=== PATIENT | female | born 1990 | race Hispanic/Latino ===

== ENCOUNTER 2020-04-10 16:00 | Inpatient (IN) | payer OTHER, MEDICAID ==
[~2020-04-10 16:00] MED LIST: Bupivacaine 0.25% HCL 30 ML VIAL ONE
[2020-04-10] MEDS ORDERED: Promethazine HCl 25 MG/ML VIAL IM PRN (16:28)
[2020-04-10] MEDS ORDERED: NS w/ Oxytocin 10 units 500 ML IV SCH (16:28)
[2020-04-10] MEDS ORDERED: NS / Oxytocin 40 units/1000ml 1,000 ML IV PRN (16:28)
[2020-04-10] MEDS ORDERED: hydrALAZINE 20 MG/ML VIAL SLOW IVP PRN (16:28)
[2020-04-10] MEDS ORDERED: HYDROcodone/Acetaminophen 5/325 mg Tablet PO PRN ×2 (16:28)
[2020-04-10] MEDS ORDERED: Zolpidem Tartrate 5 MG TAB PO PRN (16:28)
[2020-04-10] MEDS ORDERED: Lidocaine 1% (PF) 30 ML VIAL SC PRN (16:28)
[2020-04-10] MEDS ORDERED: Ibuprofen 800 MG TAB PO PRN (16:28)
[2020-04-10] MEDS ORDERED: Ondansetron PF 4 MG/2 ML Vial IVP PRN (16:28)
[2020-04-10] MEDS ORDERED: Butorphanol Tartrate 1 MG/ML VIAL SLOW IVP PRN (16:28)
[2020-04-10] MEDS ORDERED: Lactated Ringer's 1,000 ML IV SCH (16:28)
[2020-04-10 16:57] VITALS: BMI 32.5
[2020-04-10 17:14] LABS: Hemoglobin 12.1 g/dL (12.0-16.0); Mean Corpuscular HGB CONC 34.2 g/dL (32.0-36.0); Mean Corpuscular Hemoglobin 27.3 pg (27.0-31.0); Mean Corpuscular Volume 79.8 fL (78.0-98.0); Mean Platelet Volume 8.7 fL (7.4-10.4); Platelet Count 231 thou/uL (130-400); RBC Distribution Width 14.5 % (11.5-14.5); Red Blood Cell (RBC) Count 4.42 mill/uL (4.20-5.40); White Blood Cell (WBC) Count 9.1 thou/uL (4.8-10.8)
--- NOTE | 2020-04-10 17:44 | PDOC.EVN ---
Event Note - Event Note Event Note: Alejandro luu placed for Dr Guerrero without difficulty.
[2020-04-10 17:54] LABS: Syphilis Antibody Nonreactive (Nonreactive); Syphilis Antibody Index 0.02 S/CO (<1.00 Non-Reactive)
[2020-04-10 17:55] LABS: Hep B Surf Ag Non-Reactive S/CO (NonReactive)
[2020-04-11] MEDS ORDERED: Fentanyl 4 mcg/Bup 0.1% Cadd 100 ML ONE ×2 (08:19→14:43)
[2020-04-11] MEDS: Fentanyl 4 mcg/Bupivacaine 0.1% Cassette 100 ML EPIDURAL SCH ×2 (08:59→14:45)
[2020-04-11] MEDS ORDERED: Acetaminophen 325 MG TAB PO PRN (09:40)
[2020-04-11] MEDS ORDERED: EPHEDRINE 25 MG/5 ML SYRINGE SLOW IVP PRN (09:40)
[2020-04-11] MEDS ORDERED: Lactated Ringer's 500 ML IV PRN (09:40)
[2020-04-11] MEDS ORDERED: Naloxone HCl 0.4 mg/ml Vial IVP PRN ×2 (09:40)
[2020-04-11] MEDS ORDERED: Promethazine HCl 25 MG/ML VIAL IM PRN ×2 (09:40→19:08)
[2020-04-11] MEDS ORDERED: Ondansetron PF 4 MG/2 ML Vial IVP PRN ×2 (09:40→19:08)
[2020-04-11] MEDS ORDERED: diphenhydrAMINE 50 MG/ML VIAL IVP PRN (09:40)
[2020-04-11] MEDS ORDERED: Communication Order-Pharmacy FS PRN (09:45)
[2020-04-11] MEDS: Lactated Ringer's 1,000 ML IV SCH ×2 (10:00→23:05)
[2020-04-11] MEDS ORDERED: Lanolin Ointment 7 GM TUBE TOP PRN (19:08)
[2020-04-11] MEDS ORDERED: Preparation H Ointment 28 GM TUBE PR PRN (19:08)
[2020-04-11] MEDS ORDERED: Benzocaine-Menthol 82.5 ML CAN TOP PRN (19:08)
[2020-04-11] MEDS ORDERED: hydrALAZINE 20 MG/ML VIAL SLOW IVP PRN (19:08)
[2020-04-11] MEDS ORDERED: NS / Oxytocin 40 units/1000ml 1,000 ML IV SCH (19:08)
[2020-04-11] MEDS ORDERED: Zolpidem Tartrate 5 MG TAB PO PRN (19:08)
[2020-04-11] MEDS ORDERED: HYDROcodone/Acetaminophen 5/325 mg Tablet PO PRN ×2 (19:08)
[2020-04-11] MEDS ORDERED: Milk Of Magnesia 30 ML UDCUP PO PRN (19:08)
[2020-04-11] MEDS ORDERED: Bisacodyl 10 MG SUPP PR PRN (19:08)
[2020-04-11] MEDS ORDERED: diphenhydrAMINE 25 MG CAP PO PRN (19:08)
[2020-04-11] MEDS: Ibuprofen 800 MG TAB PO SCH (22:05)
[2020-04-11] MEDS: Docusate Calcium (SURFAK) 240 MG CAP PO SCH (22:05)
[2020-04-11] MEDS: Ferrous Sulfate 325 MG TAB PO SCH (23:04)
[2020-04-12] MEDS: Ibuprofen 800 MG TAB PO SCH ×3 (05:45→22:30)
[2020-04-12] MEDS: Ferrous Sulfate 325 MG TAB PO SCH ×2 (08:07→13:34)
[2020-04-12] MEDS: Docusate Calcium (SURFAK) 240 MG CAP PO SCH ×2 (08:11→22:30)
[2020-04-12] MEDS ORDERED: Varicella virus, LIVE 0.5 ML VIAL SC ONE (09:00)
[2020-04-12] MEDS ORDERED: Prenatal Vitamin 1 TAB PO SCH (09:00)
[2020-04-12] MEDS ORDERED: Adacel (T-DAP) 0.5 ML SYRINGE IM ONE (09:00)
[2020-04-13] MEDS: Ibuprofen 800 MG TAB PO SCH (05:46)
[2020-04-13 07:50] VITALS: BP 107/63; TEMP 97.9
== END 2020-04-13 09:58 | disposition home or self-care (01) | DRG 807 ==
LOC: L&D 16:01 → 3SW 04-11 20:41
PROVIDERS: ADMIT Obstetrics & Gynecology; ATTEND Obstetrics & Gynecology
PROC: 0U7C7ZZ Dilation of Cervix, Via Natural or Artificial Opening (ICD-10-PCS; 2020-04-10)
PROC: 10E0XZZ Delivery of Products of Conception, External Approach (ICD-10-PCS; principal; 2020-04-11)
DX: O34.219 Maternal care for unspecified type scar from previous cesarean delivery (principal); Z37.0 Single live birth; O70.0 First degree perineal laceration during delivery; Z3A.40 40 weeks gestation of pregnancy
CPT/HCPCS: 36415; 51702; 85027; 86780; 86850; 86900; 86901; 87340; C1726; J2590; S0020